=== PATIENT | male | born 1980 | race Caucasian/White ===

== ENCOUNTER 2017-05-20 19:08 | Emergency (ER) | payer OTHER ==
[2017-05-20 19:16] VITALS: BP 130/79
--- NOTE | 2017-05-20 20:02 | RAD ---
INDICATION: LEFT fourth and fifth metacarpal pain with laceration. Traumatic injury. COMPARISON: December 11, 2016 TECHNIQUE: AP, lateral, and oblique views LEFT hand. REPORT AND IMPRESSION: Soft tissue swelling most prominent over the dorsum of the hand at the level of the metacarpals and metacarpal phalangeal joints. No subcutaneous emphysema or conspicuous foreign body. Negative for fracture or malalignment.
[2017-05-20] MEDS ORDERED: Ketorolac INJ* 60 MG/2 ML VIAL IM ONE (20:20)
[2017-05-20] MEDS ORDERED: Ketorolac INJ* 30 MG/ML 1 ML VIAL IM ONE (20:30)
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
== END 2017-05-20 20:55 | disposition home or self-care (01) ==
LOC: UCEAST 19:08
DX: M79.642 Pain in left hand (principal); S60.512A Abrasion of left hand, initial encounter; S60.222A Contusion of left hand, initial encounter; W20.8XXA Other cause of strike by thrown, projected or falling object, initial encounter; Y93.89 Activity, other specified; Y92.9 Unspecified place or not applicable; Z88.0 Allergy status to penicillin; Z88.5 Allergy status to narcotic agent; Z87.891 Personal history of nicotine dependence
CPT/HCPCS: 96372; 99213; G0463; J1885

== ENCOUNTER 2019-04-08 12:27 | Emergency (ER) | payer OTHER ==
[2019-04-08 12:52] VITALS: BP 128/82
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
[2019-04-08] MEDS ORDERED: Lidocaine 2% PF * 5 ML VIAL INJ ONE (13:10)
[2019-04-08] MEDS ORDERED: Lidocaine/Epineph/Tetraca GEL* 3 ML GEL IN SYR TOPICAL ONE (13:11)
[2019-04-08] MEDS ORDERED: Sulfamethox/Trimethoprim DS 800/160* TAB PO ONE (13:12)
== END 2019-04-08 14:31 | disposition home or self-care (01) ==
LOC: UCCORT 12:27
DX: S01.01XA Laceration without foreign body of scalp, initial encounter (principal); S09.90XA Unspecified injury of head, initial encounter; W22.8XXA Striking against or struck by other objects, initial encounter; Y92.89 Other specified places as the place of occurrence of the external cause; Y99.0 Civilian activity done for income or pay; Z88.0 Allergy status to penicillin; F17.210 Nicotine dependence, cigarettes, uncomplicated
CPT/HCPCS: 12001; 70450; 99212; A9270-GY; G0463

== ENCOUNTER 2019-04-16 18:56 | Emergency (ER) | payer OTHER ==
[2019-04-16 19:07] VITALS: BP 142/72
--- NOTE | 2019-04-16 19:29 | UC ---
Skin Complaint HPI - HPI Summary HPI Summary: 38-year-old male comes in for removal of sutures on his scalp that were placed on April 08, 2019. Patient has a 2.5 cm laceration on the top of his head with total #5 sutures placed. Patient reports he pulled on the sutures out himself already. Patient feels well. No bleeding or signs of infection. - History of Current Complaint Chief Complaint: UCWounds Time Seen by Provider: 04/16/19 19:03 Stated Complaint: SUTURE CHECK Pain Intensity: 5 - Allergy/Home Medications Allergies/Adverse Reactions: Allergies Allergy/AdvReac Type Severity Reaction Status Date / Time fentanyl Allergy Hives Verified 04/16/19 19:08 Penicillins Allergy See Comment Verified 04/16/19 19:08 tramadol Allergy Hives Verified 04/16/19 19:08 PMH/Surg Hx/FS Hx/Imm Hx Previously Healthy: Yes Cardiovascular History: Hypertension - Surgical History Surgical History: Yes Surgery Procedure, Year, and Place: RIGHT WRIST ORIF AND REMOVAL OF HARDWARE - Family History Known Family History: Positive: Cardiac Disease, Hypertension - Social History Alcohol Use: Rare Alcohol Amount: 2 beers/week Substance Use Type: None Smoking Status (MU): Light Every Day Tobacco Smoker Type: Cigarettes Amount Used/How Often: 1/2 ppd Length of Time of Smoking/Using Tobacco: 15+ years Have You Smoked in the Last Year: Yes When Did the Patient Quit Smoking/Using Tobacco: december 28 stopped cigarettes Household Exposure Type: Cigarettes - Immunization History Most Recent Influenza Vaccination: Fall 2012 Most Recent Tetanus Shot: Within last 5 years Most Recent Pneumonia Vaccination: None Review of Systems All Other Systems Reviewed And Are Negative: Yes Constitutional: Positive: Negative Skin: Positive: Other - see hpi Eyes: Positive: Negative ENT: Positive: Negative Respiratory: Positive: Negative Cardiovascular: Positive: Negative Gastrointestinal: Positive: Negative Motor: Positive: Negative Neurovascular: Positive: Negative Musculoskeletal: Positive: Negative Neurological: Positive: Negative Psychological: Positive: Negative Is Patient Immunocompromised?: No Physical Exam Triage Information Reviewed: Yes Appearance: Well-Appearing, No Pain Distress, Well-Nourished Vital Signs: Initial Vital Signs Temp 98.2 F 04/16/19 19:02 Pulse 82 04/16/19 19:02 Resp 18 04/16/19 19:02 BP 142/72 04/16/19 19:02 Pulse Ox 98 04/16/19 19:02 Vital Signs Reviewed: Yes Eye Exam: Normal Eyes: Positive: Conjunctiva Clear Neck: Positive: Supple Respiratory: Positive: No respiratory distress Musculoskeletal: Positive: Strength Intact, ROM Intact Neurological: Positive: Alert Psychological: Positive: Age Appropriate Behavior Skin: Positive: Other - 2.5 cm healing laceration on the left scalp with a scab. I removed 4 sutures from the area. No bleeding no erythema no signs of infection. Course/Dx - Diagnoses Provider Diagnosis: Encounter for removal of sutures Discharge - Sign-Out/Discharge Documenting (check all that apply): Patient Departure All imaging exams completed and their final reports reviewed: No Studies - Discharge Plan Condition: Stable Disposition: HOME Patient Education Materials: Stitches Removal (ED) Referrals: Nirav Rodriguez DO [Primary Care Provider] - Additional Instructions: FOLLOW UP WITH YOUR DOCTOR IF NOT COMPLETELY IMPROVED. GET REEVALUATED SOONER IF WORSE OR ANY QUESTIONS OR CONCERNS. - Billing Disposition and Condition Condition: STABLE Disposition: Home
== END 2019-04-16 19:35 | disposition home or self-care (01) ==
LOC: UCCORT 18:56
DX: Z48.02 Encounter for removal of sutures (principal); I10 Essential (primary) hypertension; F17.210 Nicotine dependence, cigarettes, uncomplicated

== ENCOUNTER 2019-07-26 19:24 | Emergency (ER) | payer OTHER ==
--- OUTSIDE RECORDS SUMMARY | 2019-07-26 19:31 | XMS REPORT | Continuity of Care Document ---
:1980 External Reference #:[id number] Author Name Phillip Humphrey M.D. (transmitted by agent of provider Gilma Castillo) Address [address] [place] [address] Care Team Providers Name Role Phone Nirav Rodriguez D.O. Care Team Information Water Proofer [phone] Problems Description No Information Available Social History Type Date Description Comments Sex Male Tobacco Use Start: Unknown current cigarette smoker ETOH Use Rare Use Of Alcohol Recreational Drug Use Denies Drug Use Allergies, Adverse Reactions, Alerts Active Allergies Reaction Severity Comments Date Penicillin 01/15/2019 Medications Active Medications SIG Qnty Indications Ordering Date Provider Percocet 1-2 by mouth 20tabs Phillip Humphrey, 06/19/2019 5-325mg Tablets four times a day M.D. as needed for pain Atenolol 2 po qd Unknown 50mg Tablets Verapamil HCL ER 1 by mouth every Unknown 240mg Caps day ER 24HR Cyclobenzaprine HCL one tab at at Unknown 10mg bedtime Tablets B Complex-C Unknown Tablets Hydroxyzine HCL three times a Unknown 25mg day as needed Tablets Ranitidine HCL 1 by mouth every Unknown 150mg day Tablets Sumatriptan Succinate 1 tab by mouth Unknown 50mg as needed Tablets headache may repeat dose 2 hours later Fluticasone Propionate 2 sprays both Unknown nostrils every 50mcg/Act Suspension day Immunizations Description No Information Available Vital Signs Date Vital Result Comment 06/26/2019 11:10am Weight 201.00 lb Height 71 inches 5'11" BMI (Body Mass Index) 28.0 kg/m2 BP Systolic 125 mmHg BP Diastolic 80 mmHg Heart Rate 64 /min O2 % BldC Oximetry 99 % Body Temperature 97.6 F Pain Level 6 02/19/2019 10:10am Weight 208.00 lb Height 71 inches 5'11" BMI (Body Mass Index) 29.0 kg/m2 BP Systolic 116 mmHg BP Diastolic 75 mmHg Heart Rate 69 /min O2 % BldC Oximetry 98 % Body Temperature 97.1 F Pain Level 0 Results Description No Information Available Procedures Date Code Description Status 06/19/2019 23592 Stereotactic Computer-Assisted, Cranial, Extradural Completed 06/19/2019 66385 Nasal/Sinus Endosc.W.Explor. Completed 06/19/2019 87411 Nasal/Sinus Endo Inc Sphenoido Completed 06/19/2019 61459 Nasal/Sinus Endosc.W.Max.Antrost. Completed 06/19/2019 54115 Septoplasty Completed 06/19/2019 90154 Submucous Resect.Turb.Par Or Comp Completed 06/19/2019 97400 Anesthesia, Nose & Accessory Sinus Surgery Not Otherwise Completed Spec 02/19/2019 24954 Nasal Endoscopy, Diag. Completed 01/30/2019 40003 Cat Scan Maxillofacial W/O Contrast,computed tomography Completed 01/30/2019 09153 Cat Scan Maxillofacial W/O Contrast,computed tomography Completed 01/30/2019 29583 Cat Scan Maxillofacial W/O Contrast,computed tomography Completed 01/15/2019 70566 Nasal Endoscopy, Diag. Completed Medical Devices Description No Information Available Encounters Type Date Location Provider Dx Diagnosis Office Visit 02/19/2019 Main Office Phillip Humphrey M.D. 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 06/19/2019 J34.2 Deviated nasal septum Jamal Hastings MD 06/19/2019 J34.2 Deviated nasal septum Phillip Humphrey M.D. 06/19/2019 J34.3 Hypertrophy of nasal turbinates Jamal Hastings MD 06/19/2019 J34.3 Hypertrophy of nasal turbinates Phillip Humphrey M.D. 02/19/2019 J32.9 Chronic sinusitis, unspecified Phillip Humphrey M.D. 02/19/2019 J34.2 Deviated nasal septum Phillip Humphrey M.D. 02/19/2019 J34.3 Hypertrophy of nasal turbinates Phillip Humphrey M.D. 02/19/2019 R51 Headache Phillip Humphrey M.D. 01/30/2019 J32.9 Chronic sinusitis, unspecified Jason Hall MD 01/30/2019 J32.9 Chronic sinusitis, unspecified Phillip Humphrey M.D. 01/30/2019 R51 Headache Jason Hall MD 01/30/2019 R51 Headache Phillip Humphrey M.D. 01/15/2019 J34.2 Deviated nasal septum Kitty Li NP 01/15/2019 J34.3 Hypertrophy of nasal turbinates Kitty Li, DEJUAN 01/15/2019 J32.9 Chronic sinusitis, unspecified Kitty Li NP Plan of Treatment No Information Available Functional Status Description No Information Available Mental Status Description No Information Available Referrals Refer to Reason for Referral Status Appt Date Phillip Humphrey M.D. PER JIMI CASTILLO FOR SUREGRY Created [address] [place] [id number] [phone] Phillip Humphrey M.D. auth for ct sinus Created [address] [place] [id number] [phone]
[2019-07-26 20:03] VITALS: BP 128/66
--- NOTE | 2019-07-26 20:25 | UC ---
Hand/Wrist HPI - HPI Summary HPI Summary: Had a drill injury 07/23/19. Had immediate swelling. Has been using a tight wrap and swelling is down. Today, having numbness, tingling on the thumb and pinky finger. - History Of Current Complaint Chief Complaint: UCUpperExtremity Stated Complaint: LEFT HAND INJURY Time Seen by Provider: 07/26/19 20:10 Hx Obtained From: Patient Mechanism Of Injury: Drill bit injured hand Onset/Duration: Sudden Onset Severity Initially: Severe Severity Currently: Mild Pain Intensity: 3 Character Of Pain: Sharp Aggravating Factor(s): Movement Alleviating Factor(s): Rest, Ice, Compression Associated Signs And Symptoms: Positive: Numbness/Tingling - on the pinky and thumb on the left hand Related History: Dominant Hand Right, Other: - Tetanus is up to date - Risk Factors Compartment Syndrome Risk Factors: Pain, Paresthesias - Allergies/Home Medications Allergies/Adverse Reactions: Allergies Allergy/AdvReac Type Severity Reaction Status Date / Time fentanyl Allergy Hives Verified 07/26/19 20:04 Penicillins Allergy See Comment Verified 07/26/19 20:04 tramadol Allergy Hives Verified 07/26/19 20:04 Home Medications: Home Medications Verapamil HCl [Verelan] 240 mg PO DAILY 07/26/19 [History Confirmed 07/26/19] PMH/Surg Hx/FS Hx/Imm Hx Previously Healthy: Yes - Surgical History Surgical History: Yes Surgery Procedure, Year, and Place: RIGHT WRIST ORIF AND REMOVAL OF HARDWARE - Family History Known Family History: Positive: Cardiac Disease, Hypertension, Diabetes - Social History Occupation: Employed Full-time Lives: With Family Alcohol Use: Rare Alcohol Amount: 2 beers/week Substance Use Type: None Smoking Status (MU): Light Every Day Tobacco Smoker Type: Cigarettes Amount Used/How Often: 1/2 ppd Length of Time of Smoking/Using Tobacco: 15+ years Have You Smoked in the Last Year: Yes When Did the Patient Quit Smoking/Using Tobacco: december 28 stopped cigarettes Household Exposure Type: Cigarettes - Immunization History Most Recent Influenza Vaccination: Fall 2012 Most Recent Tetanus Shot: Within last 5 years Most Recent Pneumonia Vaccination: None Review of Systems All Other Systems Reviewed And Are Negative: Yes Skin: Positive: Other - open wound left dorsal hand. Neurological: Positive: Paresthesia, Numbness - left pinky and thumb Physical Exam Triage Information Reviewed: Yes Appearance: Well-Appearing, No Pain Distress, Well-Nourished Vital Signs: Initial Vital Signs Temp 98.6 F 07/26/19 19:55 Pulse 76 07/26/19 19:55 Resp 18 07/26/19 19:55 BP 128/66 07/26/19 19:55 Pulse Ox 99 07/26/19 19:55 Vital Signs Reviewed: Yes ENT: Positive: Pharynx normal, Nasal congestion, TMs normal Neck exam: Normal Respiratory Exam: Normal Cardiovascular Exam: Normal Musculoskeletal Exam: Normal Neurological: Positive: Other: - decreased sensation to pinprick over the thumb and pinky on the left hand Psychological Exam: Normal Skin: Positive: Other - open wound left dorsum hand Images Hands: 1 - Healing open wound 2 - numbness 3 - numbness 4 - Sensation intact. Hand/Wrist Course/Dx - Course Course Of Treatment: Advised no sign of infection. Numbness appears to be due to the pressure dressing. - Differential Dx/Diagnosis Differential Diagnosis/HQI/PQRI: Cellulitis, Contusion, Infection, Puncture Wound Provider Diagnosis: Open wound of left hand, Neuritis Discharge ED - Sign-Out/Discharge Documenting (check all that apply): Patient Departure All imaging exams completed and their final reports reviewed: No Studies - Discharge Plan Condition: Stable Disposition: HOME Patient Education Materials: Laceration Without Closure (ED) Referrals: Nirav Rodriguez DO [Primary Care Provider] - Additional Instructions: Nerve Contusion: A bruised nerve causes the nerve to be irritated and extra sensitive to all sensations, or have numbness with tingling. Ice can make it feel worse. Try heat for healing. - Billing Disposition and Condition Condition: STABLE Disposition: Home
== END 2019-07-26 20:41 | disposition home or self-care (01) ==
LOC: UCCORT 19:24
DX: S61.402A Unspecified open wound of left hand, initial encounter (principal); F17.210 Nicotine dependence, cigarettes, uncomplicated; Z88.5 Allergy status to narcotic agent; Z88.0 Allergy status to penicillin; X58.XXXA Exposure to other specified factors, initial encounter; Y92.9 Unspecified place or not applicable
CPT/HCPCS: 99211; G0463

== ENCOUNTER 2019-08-31 18:14 | Emergency (ER) | payer OTHER ==
[2019-08-31 18:24] VITALS: BP 143/83
--- NOTE | 2019-08-31 18:34 | UC ---
Skin Complaint HPI - HPI Summary HPI Summary: patient has an abscess on inner aspect of left buttock---tender, no drainage, no fever - History of Current Complaint Chief Complaint: UCSkin Time Seen by Provider: 08/31/19 18:33 Stated Complaint: SKIN ISSUE COUGH Hx Obtained From: Patient Onset/Duration: Sudden Onset, Lasting Days - 2 Pain Intensity: 7 Pain Scale Used: 0-10 Numeric Location: Discrete Character: Pain, Redness Aggravating Factor(s): Nothing Alleviating Factor(s): Nothing Associated Signs & Symptoms: Positive: Tenderness - Allergy/Home Medications Allergies/Adverse Reactions: Allergies Allergy/AdvReac Type Severity Reaction Status Date / Time fentanyl Allergy Hives Verified 08/31/19 18:24 Penicillins Allergy See Comment Verified 08/31/19 18:24 tramadol Allergy Hives Verified 08/31/19 18:24 PMH/Surg Hx/FS Hx/Imm Hx Previously Healthy: No Cardiovascular History: Hypertension - Surgical History Surgical History: Yes Surgery Procedure, Year, and Place: RIGHT WRIST ORIF AND REMOVAL OF HARDWARE. nasal surgery 2 months ago - Family History Known Family History: Positive: Cardiac Disease, Hypertension, Diabetes - Social History Occupation: Employed Full-time Lives: With Family Alcohol Use: Occasionally Alcohol Amount: 3 beers/week Substance Use Type: None Smoking Status (MU): Light Every Day Tobacco Smoker Type: Cigarettes Amount Used/How Often: 6 cig/ Length of Time of Smoking/Using Tobacco: 15+ years Have You Smoked in the Last Year: Yes When Did the Patient Quit Smoking/Using Tobacco: december 28 stopped cigarettes Household Exposure Type: Cigarettes - Immunization History Most Recent Influenza Vaccination: Fall 2012 Most Recent Tetanus Shot: Within last 5 years Most Recent Pneumonia Vaccination: None Review of Systems All Other Systems Reviewed And Are Negative: Yes Constitutional: Positive: Negative Skin: Positive: Other - 5 cm dismeter erythema, tenderness, firm no fluctulance Eyes: Positive: Negative ENT: Positive: Negative Respiratory: Positive: Negative Cardiovascular: Positive: Negative Gastrointestinal: Positive: Negative Genitourinary: Positive: Negative Motor: Positive: Negative Neurovascular: Positive: Negative Musculoskeletal: Positive: Negative Neurological: Positive: Negative Psychological: Positive: Negative Is Patient Immunocompromised?: No Physical Exam Triage Information Reviewed: Yes Appearance: Well-Appearing, No Pain Distress, Well-Nourished Vital Signs: Initial Vital Signs Temp 98 F 08/31/19 18:20 Pulse 88 12/22/19 18:20 Resp 18 08/31/19 18:20 BP 143/83 08/31/19 18:20 Pulse Ox 97 08/31/19 18:20 Vital Signs Reviewed: Yes Eye Exam: Normal Eyes: Positive: Conjunctiva Clear ENT Exam: Normal ENT: Positive: Normal ENT inspection, Hearing grossly normal, Pharynx normal. Negative: Trismus, Muffled voice, Hoarse voice Neck exam: Normal Neck: Positive: Supple, Nontender Respiratory Exam: Normal Respiratory: Positive: Chest non-tender, No respiratory distress, No accessory muscle use Cardiovascular Exam: Normal Cardiovascular: Positive: RRR, Pulses Normal, Brisk Capillary Refill Musculoskeletal Exam: Normal Musculoskeletal: Positive: Strength Intact, ROM Intact Neurological Exam: Normal Neurological: Positive: Alert, Muscle Tone Normal Psychological Exam: Normal Skin Exam: Other Skin: Positive: Other - Abscess left buttock--no fluctulant mass, firm, tender Course/Dx - Course Course Of Treatment: warm compress 15 minutes 4-5 times a day, Bactrim, return or follow with pcp as needed - Diagnoses Provider Diagnosis: Left buttock abscess Discharge ED - Sign-Out/Discharge Documenting (check all that apply): Patient Departure All imaging exams completed and their final reports reviewed: No Studies - Discharge Plan Condition: Stable Disposition: HOME Prescriptions: Sulfamethox/Trimethoprim DS* [Bactrim DS 800/160 TAB*] 1 tab PO BID #20 tab Patient Education Materials: Abscess (ED), Hypertension (ED), Warm Compress or Soak (ED) Referrals: Nirav Rodriguez DO [Primary Care Provider] - 2 Days - Billing Disposition and Condition Condition: STABLE Disposition: Home
[2019-08-31] MEDS ORDERED: Sulfamethox/Trimethoprim DS 800/160* TAB PO ONE (18:47)
== END 2019-08-31 18:55 | disposition home or self-care (01) ==
LOC: UCEAST 18:14
DX: L02.31 Cutaneous abscess of buttock (principal); I10 Essential (primary) hypertension; F17.210 Nicotine dependence, cigarettes, uncomplicated; Z88.0 Allergy status to penicillin; Z88.6 Allergy status to analgesic agent; Z88.5 Allergy status to narcotic agent
CPT/HCPCS: 99212; A9270-GY; G0463

== ENCOUNTER 2019-11-28 20:28 | Emergency (ER) | payer OTHER ==
--- NOTE | 2019-11-28 22:02 | UC ---
Psychiatric Complaint HPI - HPI Summary HPI Summary: 39 y/o male presents to the urgent care c/o persistent dry cough for the past 4 days. Pt reports last night he couldn't sleep chest pain and dsicomfort with coughing started Sunday. states it hurts when he breathes; no fever; no body aches - History Of Current Complaint Chief Complaint: UCRespiratory Stated Complaint: COUGH, LUNGS HURT Time Seen by Provider: 11/28/19 21:44 Hx Obtained From: Patient - Allergies/Home Medications Allergies/Adverse Reactions: Allergies Allergy/AdvReac Type Severity Reaction Status Date / Time fentanyl Allergy Hives Verified 11/28/19 21:29 Penicillins Allergy See Comment Verified 11/28/19 21:29 tramadol Allergy Hives Verified 11/28/19 21:29 Home Medications: Home Medications Atenolol TAB* [Tenormin TAB* 50 MG] 100 mg PO DAILY 03/29/17 [History Confirmed 08/31/19] Cholecalciferol (Vitamin D3) [Vitamin D3] 4,000 unit PO DAILY 04/08/19 [History Confirmed 08/31/19] Magnesium Oxide [Magnesium] 500 mg PO DAILY 04/08/19 [History Confirmed 08/31/19 ] Ropinirole TAB* [Requip TAB*] 0.5 mg PO BEDTIME 04/08/19 [History Confirmed ] hydrOXYzine HCL TAB* [Atarax 25 MG TAB*] 25 mg PO DAILY 04/08/19 [History Confirmed 08/31/19] Verapamil HCl [Verelan] 240 mg PO DAILY 07/26/19 [History Confirmed 08/31/19] PMH/Surg Hx/FS Hx/Imm Hx - Surgical History Surgical History: Yes Surgery Procedure, Year, and Place: RIGHT WRIST ORIF AND REMOVAL OF HARDWARE. nasal surgery 2 months ago - Family History Known Family History: Positive: Cardiac Disease, Hypertension, Diabetes - Social History Alcohol Use: Occasionally Alcohol Amount: 3 beers/week Substance Use Type: None Smoking Status (MU): Light Every Day Tobacco Smoker Type: Cigarettes Amount Used/How Often: 6 cig/ Length of Time of Smoking/Using Tobacco: 15+ years Have You Smoked in the Last Year: Yes When Did the Patient Quit Smoking/Using Tobacco: december 28 stopped cigarettes Household Exposure Type: Cigarettes - Immunization History Most Recent Influenza Vaccination: Fall 2012 Most Recent Tetanus Shot: Within last 5 years Most Recent Pneumonia Vaccination: None Discharge ED - Discharge Plan Referrals: Nirav Rodriguez DO [Primary Care Provider] -
[2019-11-28 22:07] VITALS: BP 131/83
--- NOTE | 2019-11-28 22:11 | UC ---
Respiratory Complaint HPI - HPI Summary HPI Summary: 39 y/o male presents to the urgent care c/o of persistent dry cough for the past 4 days. He has also experience body aches, fatigue and chills. He has not been able to take his temp since he doesn't have a thermometer. 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 Pt has been taken Nyquill PO to alleviate symptoms. Pt's cough worsen last night and was unable to sleep well. He states today his his chest hurts when he cough, but nothing comes up. Pt denies SOB, chest pain,abdominal pain, N/V/d. Denies exposure to Pt 's w/ COVID19. - History of Current Complaint Chief Complaint: UCRespiratory Stated Complaint: COUGH, LUNGS HURT Time Seen by Provider: 11/28/19 21:44 Hx Obtained From: Patient Onset/Duration: Gradual Onset, Lasting Days - 4 days Timing: Intermittent Episodes Severity Initially: Mild Severity Currently: Moderate Pain Intensity: 7 - chest hurst when coughing and body aches Pain Scale Used: 0-10 Numeric Character: Cough: Nonproductive Aggravating Factors: Recumbent Position Alleviating Factors: OTC Meds - Nyquill PO Associated Signs And Symptoms: Positive: Chills. Negative: Fever, Wheezing - Risk Factors Pulmonary Embolism Risk Factors: Negative Cardiac Risk Factors: Negative Pseudomonas Risk Factors: Negative Tuberculosis Risk Factors: Negative - Allergies/Home Medications Allergies/Adverse Reactions: Allergies Allergy/AdvReac Type Severity Reaction Status Date / Time fentanyl Allergy Hives Verified 11/28/19 21:29 Penicillins Allergy See Comment Verified 11/28/19 21:29 tramadol Allergy Hives Verified 11/28/19 21:29 Home Medications: Home Medications Atenolol TAB* [Tenormin TAB* 50 MG] 100 mg PO DAILY 03/29/17 [History Confirmed 08/31/19] Cholecalciferol (Vitamin D3) [Vitamin D3] 4,000 unit PO DAILY 04/08/19 [History Confirmed 08/31/19] Magnesium Oxide [Magnesium] 500 mg PO DAILY 04/08/19 [History Confirmed 08/31/19 ] Ropinirole TAB* [Requip TAB*] 0.5 mg PO BEDTIME 04/08/19 [History Confirmed ] hydrOXYzine HCL TAB* [Atarax 25 MG TAB*] 25 mg PO DAILY 04/08/19 [History Confirmed 08/31/19] Verapamil HCl [Verelan] 240 mg PO DAILY 07/26/19 [History Confirmed 08/31/19] PMH/Surg Hx/FS Hx/Imm Hx Previously Healthy: Yes Cardiovascular History: Hypertension - Surgical History Surgical History: Yes Surgery Procedure, Year, and Place: RIGHT WRIST ORIF AND REMOVAL OF HARDWARE. nasal surgery 2 months ago - Family History Known Family History: Positive: Cardiac Disease, Hypertension, Diabetes - Social History Occupation: Employed Full-time Lives: With Family Alcohol Use: Occasionally Alcohol Amount: 3 beers/week Substance Use Type: None Smoking Status (MU): Light Every Day Tobacco Smoker Type: Cigarettes Amount Used/How Often: 6 cig/ Length of Time of Smoking/Using Tobacco: 15+ years Have You Smoked in the Last Year: Yes When Did the Patient Quit Smoking/Using Tobacco: december 28 stopped cigarettes Household Exposure Type: Cigarettes - Immunization History Most Recent Influenza Vaccination: Fall 2012 Most Recent Tetanus Shot: Within last 5 years Most Recent Pneumonia Vaccination: None Review of Systems All Other Systems Reviewed And Are Negative: Yes Constitutional: Positive: Chills, Fatigue, Other - body aches Skin: Positive: Negative Eyes: Positive: Negative ENT: Positive: Sinus Congestion Respiratory: Positive: Cough - persistent dry cough Cardiovascular: Positive: Chest Pain - when he coughs Gastrointestinal: Positive: Negative Genitourinary: Positive: Negative Motor: Positive: Negative Neurovascular: Positive: Negative Musculoskeletal: Positive: Myalgia Neurological/Mental Status: Positive: Headache Psychological: Positive: Negative Is Patient Immunocompromised?: No Physical Exam - Summary Physical Exam Summary: VITAL SIGNS: Reviewed. GENERAL: Patient is a well developed and nourished male who is sitting comfortably in the examining table. Patient is not in any acute respiratory distress. HEAD AND FACE: No signs of trauma. No ecchymosis, hematomas or skull depressions. No sinus tenderness. EYES: PERRLA, EOMI x 2, No injected conjunctiva, no nystagmus. No photophobia. EARS: Hearing grossly intact. Ear canals and tympanic membranes are within normal limits. MOUTH: Positive pharynx with mild erythema, no exudates, No B/L tonsillar enlargement , no exudate. Uvula in midline. edematous nasal mucosa w/ clear nasal discharge, clear PND NECK: Supple, trachea is midline, Positive anterior cervical lymphadenopathy, no JVD, no carotid bruit, no c-spine tenderness, neck with full ROM. No meningeal signs, no Kernig's or brudzinskis signs. CHEST: Symmetric, no tenderness at palpation LUNGS: Clear to auscultation bilaterally. No wheezing or crackles. CVS: Regular rate and rhythm, S1 and S2 present, no murmurs or gallops appreciated. ABDOMEN: Soft, non-tender. No signs of distention. No rebound no guarding, and no masses palpated. Bowel sounds are normal. EXTREMITIES: FROM in all major joints, no edema, no cyanosis or clubbing. NEURO: Alert and oriented x 3. No acute neurological deficits. Pt follows commands. SKIN: Dry and warm. Triage Information Reviewed: Yes Vital Signs: Initial Vital Signs Temp 98.7 F 11/28/19 22:06 Pulse 63 11/28/19 22:06 Resp 20 11/28/19 22:06 BP 131/83 11/28/19 22:06 Pulse Ox 97 11/28/19 22:06 Respiratory Course/Dx - Course Course Of Treatment: 39 y/o male presents to the urgent care c/o of persistent dry cough for the past 4 days. He has also experience body aches, fatigue and chills. He has not been able to take his temp since he doesn't have a thermometer. 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 Pt has been taken Nyquill PO to alleviate symptoms. Pt's cough worsen last night and was unable to sleep well. He states today his his chest hurts when he cough, but nothing comes up. Pt denies SOB, chest pain,abdominal pain, N/V/d. Denies exposure to Pt 's w/ COVID19. He is an everyday smoker. Hx obtained. Pt is hemdynamically stable, A&OX3, VS: WNL. Pt w/ possible viral syndrome on examination. Rapid strep ordered, result: negative. Influenza A&B: negative. COVID19 testing ordered. Pt advised results will have a turn over of 3-6 days. Pt advised her to quarantine while waiting for the results and Health department will contact her to notify her of any abnormality. Pt advised to take Tylenol to alleviate symptoms. Increase hydration and boost his immune system by eating well, taking Vitamin C and avoiding strenuous exercise. D/C instructions explained. Pt understood and agreed w/ plan of care and left clinic ambulating - Differential Dx/Diagnosis Differential Diagnosis/HQI/PQRI: Asthma, Bronchitis, Lower Resp Infection, Sinusitis Provider Diagnosis: Viral syndrome Discharge ED - Sign-Out/Discharge Documenting (check all that apply): Patient Departure - D/C home All imaging exams completed and their final reports reviewed: No Studies - Discharge Plan Condition: Stable Disposition: HOME Patient Education Materials: Viral Syndrome (ED) Forms: COVID-19 Tested & Isolation Referrals: Nirav Rodriguez DO [Primary Care Provider] - Additional Instructions: 1- Oropharyngeal swabs have been sent to the lab to r/o COVID 19, you will be notified of any abnormality as soon as we get the results. 2-Please Take Tylenol PO q6-8hrs prn as instructed after meals to alleviate fever, or myalgias. Take Vitamin C to boost your immune system. Increase fluid intake, eat well, rest and avoid strenuous exercise. 3- Please isolate at home until you get the results. The Health department will contact you and will ask for temperature, follow their recommendations. 4-If you develop any SOB, chest pain, any respiratory distress, weakness, nausea and vomiting please return to the urgent care or go immediately to the ER for further management. - Billing Disposition and Condition Condition: STABLE Disposition: Home
[2019-11-28 22:16] LABS: Influenza A Molecular Negative (Negative); Influenza B Molecular Negative (Negative)
== END 2019-11-28 22:43 | disposition home or self-care (01) ==
LOC: UCEAST 20:28
DX: B34.9 Viral infection, unspecified (principal); R07.89 Other chest pain; Z20.828 Contact with and (suspected) exposure to other viral communicable diseases; I10 Essential (primary) hypertension; Z79.899 Other long term (current) drug therapy; Z88.5 Allergy status to narcotic agent; Z88.0 Allergy status to penicillin; F17.210 Nicotine dependence, cigarettes, uncomplicated
CPT/HCPCS: 87651; 99212; G0463; U0002